=== PATIENT | male | born 2000 | race Caucasian/White ===

== ENCOUNTER 2023-04-08 16:36 | Inpatient (IN) | payer MEDICAID ==
[~2023-04-08] VITALS: Ht 167.6 cm; Wt 69.5 kg
[2023-04-08] MEDS ORDERED: HALO5TAB23 PO (19:12)
[2023-04-08] MEDS ORDERED: QUET25TA PO (19:32)
[2023-04-08] MEDS ORDERED: DIVA500T53 PO (19:41)
[2023-04-08] MEDS ORDERED: HALOPERIDOL 5 MG TABLET PO PRN (21:15)
[2023-04-08 22:51] VITALS: BP 117/71; PULSE 76; RESP 18; TEMP 96.5; O2SAT 98
[2023-04-08] MEDS ORDERED: INFLUENZA VIRUS VACCINE QVS 2023-24 (6MO+)/PF 60 MCG/0.5 ML SYRINGE IM. ONE (23:45)
[2023-04-09] MEDS: ZOLPIDEM TARTRATE 10 MG TABLET PO PRN (02:26)
[2023-04-09] MEDS: LORazepam 2 MG TABLET PO PRN ×3 (06:43→17:59)
[2023-04-09 08:11] LABS: BASOPHILS % (AUTO) 0.7 % (0.0-2.0); EOSINOPHILS % (AUTO) 1.3 % (1.0-6.0); HEMATOCRIT 39.9 % (41-53); HEMOGLOBIN 13.9 g/dL (13.5-17.5); LYMPHOCYTES # (AUTO) 2.5 K/uL (1.0-4.8); LYMPHOCYTES % (AUTO) 29.9 % (22.0-44.0); MEAN CORPUSCULAR HEMOGLOBIN 29.7 pg (26.0-34.0); MEAN CORPUSCULAR HGB CONC 34.8 G/dL (31.0-37.0); MEAN CORPUSCULAR VOLUME 85 fL (80-100); MONOCYTES # (AUTO) 0.7 K/uL (0.1-1.0); MONOCYTES % (AUTO) 8.9 % (2.0-9.0); NEUTROPHILS # (AUTO) 4.9 K/uL (1.8-7.7); NEUTROPHILS % (AUTO) 59.2 % (40.0-70.0); PLATELET COUNT (AUTO) 346 K/uL (150-450); RED BLOOD CELL COUNT(AUTO) 4.68 MIL/uL (4.50-5.90); RED CELL DISTRIBUTION WIDTH 13.2 % (11.5-14.5); WHITE BLOOD COUNT (AUTO) 8.2 K/uL (4.5-11.0)
[2023-04-09 08:16] VITALS: BP 132/77; PULSE 84; RESP 18; TEMP 97.7; O2SAT 99
[2023-04-09 08:18] LABS: HEMOGLOBIN A1C 5.3 % (3.8-5.6)
[2023-04-09 08:37] LABS: ALANINE AMINOTRANSFERASE 33 U/L (12-78); ALKALINE PHOSPHATASE 65 U/L (46-116); ANION GAP 9 mmol/L (8-16); ASPARTATE AMINOTRANSFERASE 45 U/L (15-37); BILIRUBIN,TOTAL 0.2 mg/dL (0.1-1.0); CALCIUM, TOTAL 9.5 mg/dL (8.8-10.5); CARBON DIOXIDE 28 mmol/L (22-29); CHLORIDE 101 mmol/L (98-107); CHOL/HDL RATIO 3.4 (4.2-7.3); CHOLESTEROL 146 mg/dL (131-200); CREATININE 0.99 mg/dL (0.60-1.30); GLOMERULAR FILTR. RATE CALC > 60 mL/min (>60); GLUCOSE,RANDOM 86 mg/dL (70-110); HDL CHOLESTEROL 43 mg/dL (40-60); LDL CHOL (CALC.) 87 mg/dL (0-130); POTASSIUM 4.1 mmol/L (3.5-5.1); SODIUM SERUM 138 mmol/L (136-145); THYROID STIMULATING HORMONE 4.16 uIU/mL (0.36-3.74); TOTAL PROTEIN, SERUM 7.2 g/dL (6.4-8.2); TRIGLYCERIDES 82 mg/dL (15-150); UREA NITROGEN, BLOOD 14 mg/dL (7-18)
[2023-04-09] MEDS: HALOPERIDOL 5 MG TABLET PO SCH ×2 (11:09→16:59)
[2023-04-09] MEDS: QUEtiapine FUMARATE 25 MG TABLET PO SCH ×2 (12:07→21:00)
[2023-04-09] MEDS: DIVALPROEX SODIUM 500 MG ER TABLET PO SCH ×2 (12:34→16:59)
[2023-04-09] MEDS ORDERED: CloNIDine HCL 0.1 MG TABLET PO PRN (13:00)
[2023-04-09] MEDS ORDERED: DOCUSATE SODIUM 100 MG CAPSULE PO PRN (13:00)
[2023-04-09] MEDS ORDERED: MAGNESIUM HYDROXIDE SUSPENSION 30 ML UDCUP PO PRN (13:00)
[2023-04-09] MEDS ORDERED: IBUPROFEN 400 MG TABLET PO PRN (13:00)
[2023-04-09] MEDS ORDERED: NICOTINE 14 MG/24 HOUR PATCH TD PRN (13:00)
[2023-04-09] MEDS ORDERED: MAG HYDROX/ALUMINUM HYD/SIMETH ES 30 ML SUSPENSION UDCUP PO PRN (13:00)
[2023-04-09] MEDS ORDERED: LOPERAMIDE HCL 2 MG CAPSULE PO PRN (13:00)
[2023-04-09] MEDS ORDERED: GuaiFENesin/D-METHORPHAN [SUGAR-FREE] 200-20MG/10 ML SYRUP UDCUP PO PRN (13:00)
[2023-04-09] MEDS ORDERED: ALBUTEROL SULFATE HFA 90 MCG/PUFF 8 GM INHALER IH PRN (13:00)
[2023-04-09] MEDS ORDERED: PETROLATUM,WHITE 28 GM JELLY TP PRN (13:00)
[2023-04-09] MEDS ORDERED: ACETAMINOPHEN 325 MG TABLET PO PRN (13:00)
[2023-04-09] MEDS ORDERED: ONDANSETRON HCL 4 MG TABLET PO PRN (13:00)
[2023-04-09 20:05] VITALS: RESP 18
[2023-04-10] MEDS: ZOLPIDEM TARTRATE 10 MG TABLET PO PRN ×2 (01:08→20:56)
[2023-04-10] MEDS: LORazepam 2 MG TABLET PO PRN ×2 (07:13→14:31)
[2023-04-10 08:22] VITALS: BP 139/72; PULSE 77; RESP 18; TEMP 97.6; O2SAT 97
[2023-04-10 08:28] LABS: HEMOGLOBIN A1C 5.5 % (3.8-5.6)
[2023-04-10 08:45] LABS: CHOL/HDL RATIO 3.4 (4.2-7.3); THYROID STIMULATING HORMONE 2.64 uIU/mL (0.36-3.74)
[2023-04-10 08:53] LABS: APPEARANCE,URINE CLEAR (CLEAR); BILIRUBIN,URINE NEGATIVE (NEGATIVE); COLOR,URINE COLORLESS (YELLOW); GLUCOSE, URINE (UA) NEGATIVE (NEGATIVE); KETONES,URINE NEGATIVE (NEGATIVE); LEUKOCYTE ESTERASE ,URINE NEGATIVE (NEGATIVE); NITRATE,URINE NEGATIVE (NEGATIVE); OCCULT BLOOD,URINE NEGATIVE (NEGATIVE); PROTEIN,URINE NEGATIVE (NEGATIVE); SPECIFIC GRAVITIY, URINE 1.004 (1.003-1.030); UROBILINOGEN,URINE <=1.0 mg/dL (<=1.0)
[2023-04-10 09:03] LABS: ALCOHOL, URINE DRUG SCREEN NEGATIVE (NEGATIVE); AMPHET/METH SCREEN,URINE NEGATIVE (NEGATIVE); BARBITURATE SCREEN, URINE NEGATIVE (NEGATIVE); BENZODIAZEPINES SCREEN,URINE NEGATIVE (NEGATIVE); CANNABINOID SCREEN,URINE NEGATIVE (NEGATIVE); COCAINE SCREEN,URINE NEGATIVE (NEGATIVE); METHADONE SCREEN, URINE NEGATIVE (NEGATIVE); OPIATE SCREEN,URINE NEGATIVE (NEGATIVE); PHENCYCLIDINE SCREEN,URINE NEGATIVE (NEGATIVE)
[2023-04-10] MEDS: HALOPERIDOL 5 MG TABLET PO SCH ×2 (09:05→17:23)
[2023-04-10] MEDS: QUEtiapine FUMARATE 25 MG TABLET PO SCH ×2 (09:05→20:56)
[2023-04-10] MEDS: DIVALPROEX SODIUM 500 MG ER TABLET PO SCH ×3 (09:05→17:23)
[2023-04-10 23:52] VITALS: BP 122/65; PULSE 81; RESP 18; TEMP 97.8; O2SAT 99
[2023-04-11] MEDS: LORazepam 2 MG TABLET PO PRN (08:05)
[2023-04-11] MEDS: QUEtiapine FUMARATE 25 MG TABLET PO SCH (08:05)
[2023-04-11] MEDS: HALOPERIDOL 5 MG TABLET PO SCH (08:05)
[2023-04-11] MEDS: DIVALPROEX SODIUM 500 MG ER TABLET PO SCH (08:05)
[2023-04-11 08:25] VITALS: BP 120/84; PULSE 100; RESP 17; TEMP 97.7; O2SAT 100
[2023-04-11] MEDS ORDERED: HALO5TAB23 PO (11:08)
[2023-04-11] MEDS ORDERED: QUET25TA36 PO (11:08)
[2023-04-11] MEDS ORDERED: DIVA500T69 PO (11:08)
== END 2023-04-11 11:20 | disposition home or self-care (01) | DRG 750 ==
LOC: B3A 18:58
PROVIDERS: ADMIT Psychiatry & Neurology Child & Adolescent Psychiatry; ATTEND Psychiatry & Neurology Child & Adolescent Psychiatry
DX: F20.9 Schizophrenia, unspecified (principal); F10.10 Alcohol abuse, uncomplicated; F41.9 Anxiety disorder, unspecified; Y90.9 Presence of alcohol in blood, level not specified; G47.00 Insomnia, unspecified; K59.00 Constipation, unspecified; Z91.199 Patient's noncompliance with other medical treatment and regimen due to unspecified reason
CPT/HCPCS: 80053; 80061; 80307; 81003; 83036; 84439; 84443; 85025; 87081